=== PATIENT | male | born 1965 | race Caucasian/White ===

== ENCOUNTER → 2021-07-26 | Outpatient (CLI) | payer BC ==
--- NOTE | 2021-07-26 16:59 | KCIC ---
Single view pelvis and single view right hip dated 07/26/2021 COMPARISON: None. INDICATION: Pain. FINDINGS: AP view pelvis and lateral view of right hip show moderate degenerative changes of the right hip join t with disc space narrowing and [id number] abutment. There is subchondral cystic changes with small marginal osteophytes. Mild degenerative change of the left hip joint and pubic symphysis. Mild degen erative change of the bilateral SI joint. No periostitis or bone destruction. IMPRESSION: 1. No acute bony abnormality. 2. Moderate right hip DJD Electronically signed by: Trevon Norton MD (07/26/2021 4:57 PM) [id number]
--- NOTE | 2021-07-26 17:02 | KCIC ---
5 views lumbar spine dated 07/26/2021. COMPARISON: None. INDICATION: Pain. FINDINGS: AP, lateral, bilateral oblique and coned in views of lumbosacral junction obtained. Slight retrolisth esis of L4 on L5. Sagittal alignment is otherwise anatomic. Vertebral body heights are maintained. Mi ld endplate hypertrophic changes throughout with mild arthrosis lower lumbar apophyseal joints. No pa rs defects on the oblique views. IMPRESSION: 1. No acute radiographic abnormality. 2. Mild lower lumbar spondylosis. Electronically signed by: Trevon Norton MD (07/26/2021 4:59 PM) [id number]
== END ==
LOC: KCIC 15:45
PROVIDERS: ATTEND Family Medicine
DX: M16.11 Unilateral primary osteoarthritis, right hip (principal); M47.26 Other spondylosis with radiculopathy, lumbar region; M46.1 Sacroiliitis, not elsewhere classified; M43.16 Spondylolisthesis, lumbar region
CPT/HCPCS: 72110; 73501